=== PATIENT | male | born 1950 | race Native Hawaiian/Other Pacific Islander ===

== ENCOUNTER 2022-07-20 18:55 | Emergency (ER) | payer OTHER ==
[~2022-07-20] VITALS: Ht 160 cm; Wt 62.1 kg
[~2022-07-20 18:55] MED LIST: ACET-655 PO; ACID REDUCE OR; ARTIFICIA2; BENADRYL 50M50 MG/ML IJ; BUSPIRONE10 MG PO; CALC500T57 PO; CELEXA20 MG PO; CELEXA40 MG PO; CITA20TA2 PO; CLON0.5T36 PO; CLONAZEP ODT0.25 MG PO; DIVA500T2 PO; DIVALPROEX250 M1 OR; DIVALPROEX250 MG PO; DIVALPROEX500 M1 OR; DONE5TAB PO; FOLI1TAB26 PO; HALO5INJ3; KEPPRA XR500 MG PO; KEPPRA750 MG PO; METAMUCIL POWDER PO; MIRTAZAPINE7.5 MG PO; NAMENDA XR28 MG OR; NITR100C56 PO; PANTOPRAZOLE SOD DR PO; PHEN50CH2 PO; PHENYTEK300 MG OR; PHENYTOIN EX100 MG PO; RANITIDINE 150150 MG PO; REMERON SOLTAB15 MG OR; REMERON SOLTAB15 MG PO; RISP0.25 PO; RISP1TAB PO; RISPERDAL3 MG PO; STERILE WATER IM; THIA100T8 PO; TOPIRAMATE25 MG PO; TYLENOL325 MG PO; UNITH DIRECT112 MCG PO; ZEBUTAL 50-325-1 CAP PO; ZIPR20IN IM; [UNRECOGNIZED DRUG - CODE] OR
[2022-07-20 19:00] VITALS: BP 131/54; TEMP 97.7
[2022-07-20 19:26] LABS: PLATELET COUNT 405 K/uL (142-355)
[2022-07-21] MEDS ORDERED: HOUSE SUPPLEMENT PO (07:12)
[2022-07-21] MEDS ORDERED: CELEXA20 MG PO (07:14)
[2022-07-21] MEDS ORDERED: CALCIUM 600 WIT1 TAB PO (07:14)
[2022-07-21] MEDS ORDERED: DIVA250T2 PO (07:15)
[2022-07-21] MEDS ORDERED: DIVA500T2 PO (07:15)
[2022-07-21] MEDS ORDERED: KP FOLIC ACID1 MG PO (07:17)
[2022-07-21] MEDS ORDERED: DQZATE100 MG PO (07:17)
[2022-07-21] MEDS ORDERED: HALO5INJ3 IM (07:18)
[2022-07-21] MEDS ORDERED: IMODIUM A-D2 MG PO (07:21)
[2022-07-21] MEDS ORDERED: MAPAP325 MG PO (07:24)
[2022-07-21] MEDS ORDERED: REMERON30 MG PO (07:25)
[2022-07-21] MEDS ORDERED: ZYPREXA ZYDI15 MG PO (07:25)
[2022-07-21] MEDS ORDERED: EUTHYROX88 MCG PO (07:27)
[2022-07-21] MEDS ORDERED: TOPAMAX25 MG PO (07:28)
[2022-07-21] MEDS ORDERED: TAMS0.4C PO (07:28)
[2022-07-21] MEDS ORDERED: VITAMIN D31000 UNI4 PO (07:29)
[2022-07-21] MEDS ORDERED: THIAMINE HCL PO (07:29)
[2022-07-21] MEDS ORDERED: ONDA4TAB3 PO (07:30)
== END 2022-07-20 20:59 | disposition other institution (70) ==
LOC: ED 18:55
PROVIDERS: Family Medicine
DX: F03.918 Unspecified dementia, unspecified severity, with other behavioral disturbance (principal); R56.9 Unspecified convulsions; I10 Essential (primary) hypertension; F32.A Depression, unspecified; Z02.79 Encounter for issue of other medical certificate; F17.210 Nicotine dependence, cigarettes, uncomplicated
CPT/HCPCS: 80053; 85027; 93005; 99283